=== PATIENT | female | born 1950 | race American Indian/Alaskan Native ===

== ENCOUNTER 2018-07-24 06:57 | Day surgery (SDC) | payer MEDICARE ==
[~2018-07-24 06:57] MED LIST: ANCEF/STERILE WATER 2 GM/20 ML IV NR
[2018-07-24] MEDS ORDERED: NACL BACTERIOSTATIC INFILTRATI ONE (07:43)
[2018-07-24] MEDS ORDERED: LACTATED RINGERS 1,000 ML ONE (07:43)
[2018-07-24] MEDS ORDERED: LACTATED RINGERS 1,000 ML IV SCH (08:00)
[2018-07-24] MEDS ORDERED: VERSED IV NR (08:22)
[2018-07-24] MEDS ORDERED: MARCAINE-EPI 0.25%-1:200,000 INFILTRATI ONE (08:24)
[2018-07-24] MEDS ORDERED: XYLOCAINE 1% 20 mL ONE (08:24)
[2018-07-24] MEDS ORDERED: MARCAINE 0.25% INFILTRATI ONE ×2 (08:24→09:20)
[2018-07-24] MEDS ORDERED: DIPRIVAN 10 MG/ML IV ONE ×2 (08:28→08:40)
[2018-07-24] MEDS ORDERED: SUBLIMAZE ONE (08:28)
[2018-07-24] MEDS ORDERED: XYLOCAINE MPF 2% ONE (08:30)
[2018-07-24] MEDS ORDERED: PROAIR IH ONE (08:40)
[2018-07-24] MEDS ORDERED: PERCOCET 5/325 PO PRN (08:40)
--- NOTE | 2018-07-24 08:40 | Anesthesia Consultation ---
Anesthesia Consult and Med Hx Date of service: 07/24/18 - Airway Anesthetic Teeth Evaluation: Good ROM Head & Neck: Adequate Mental/Hyoid Distance: Adequate Mallampati Class: Class III Intubation Access Assessment: Possibly Difficult - Pulmonary Exam CTA: Yes - Cardiac Exam Cardiac Exam: RRR - Pre-Operative Health Status ASA Pre-Surgery Classification: ASA2 Proposed Anesthetic Plan: MAC - Pulmonary Hx Smoking: Yes (current 0.5-1PPD x12 yrs) Hx Asthma: No Hx Respiratory Symptoms: No COPD: No Hx Sleep Apnea: No - Cardiovascular System Hx Hypertension: Yes (BP elevated on arrival. Will take morning dose of carvedilol.) Hx Heart Attack/AMI: No Hx Percutaneous Transluminal Coronary Angioplasty (PTCA): No - Central Nervous System Hx Seizures: No CVA: No Hx Psychiatric Problems: No - Gastrointestinal Hx Gastroesophageal Reflux Disease: No - Endocrine Hx Renal Disease: No Hx Liver Disease: No Hx Insulin Dependent Diabetes: No Hx Non-Insulin Dependent Diabetes: No Hx Thyroid Disease: No - Other Systems Hx Alcohol Use: Yes (OCC. WINE) Hx Cancer: No Hx Obesity: Yes - Additional Comments Anesthesia Medical History Comments: No hx anesthetic complications.
--- NOTE | 2018-07-24 08:40 | Anesthesia Day of Surgery ---
Anesthesia Day of Surgery - Day of Surgery Patient Examined: Yes Patient H&P Reviewed: Yes Patient is NPO: Yes Beta Blockers: Yes
[2018-07-24] MEDS ORDERED: XYLOCAINE 1%/ EPI 1:100,000 INFILTRATI ONE ×2 (09:20→09:22)
[2018-07-24] MEDS ORDERED: NACL 0.9% IR ONE (09:20)
[2018-07-24] MEDS ORDERED: DILAUDID ONE (10:58)
[2018-07-24] MEDS ORDERED: ZOFRAN ONE (11:01)
[2018-07-24] MEDS ORDERED: DECADRON ONE (11:01)
--- NOTE | 2018-07-24 12:20 | Operative Report ---
Operative Report Operative Report: Date of procedure: 07/24/2018 Pre-operative diagnosis: Right anterior thigh mass Post-operative diagnosis: Same Procedure name(s): Excision of right anterior thigh mass Surgeon: Sergey Vaughan MD Sausage Inspector: None Anesthesia: Gen. EBL: Minimal Complications: None noted Instrument Count: Correct Indications: This is a 68-year-old female with a history of an enlarging anterior thigh mass that is now causing pain. The patient noted that it was discovered approximately 14 years prior. The risks and benefits of the procedure was discussed in depth the patient opted for surgical intervention. She was subsequently brought to operating room. Findings: Large 13 x 6 x 8 cm calcified anterior thigh mass Procedure: The informed consent was reviewed. The patient was then placed supine upon the table. After adequate anesthesia was reached, verify the patient, who was then prepped and draped in usual sterile fashion. I infiltrated local anesthetic field block around the mass. Mass is noted to be hard. I made a skin incision initially using a 10 blade approximately 8 cm transversely across the thigh along the skin lines. Dissection was carried down through the subcutaneous tissues until the anterior fascial sheath was encountered. Using a 15 blade introducer sheath carefully and split the sheath both superiorly and inferiorly along the length of the mass. The quadriceps muscle was identified and split in a muscle-sparing manner. I dissected down until I encountered the mass. There was several layers of muscle fibers over the mass creating a sheath and I was forced to dissect through this, opening each layer individually the most anterior aspect of the mass was noted to be e xtremely calcified and it took careful dissection to free up the anterior aspect of the mass. Superiorly the mass extended up towards the inguinal ligament however no critical structures were identified attached to the mass. Using primarily blunt dissection I was able to free the mass from most of the attachments. There remained a small amount of fibrous sheath at the most posterior aspect and at this point time I incised the sheath to allow complete mobilization of the mass. This allowed me to exteriorize the mass and using electrocautery release it from the remainder of the fibrous sheath that surrounded it. At this time I handed the mass off from the table to be sent to pathology with the previously noted dimensions. I irrigated the wound and then approximated the anterior fascial sheath using a 3-0 Vicryl in a running fashion. The quadriceps muscle had also been approximated using interrupted 30 Vicryls. The subcutaneous tissues were also approximated using running 3-0 Vicr yl followed by a 4-0 Monocryl to close the skin. The wound was bandaged sterilely patient tolerated procedure well she was awakened and extubated transferred PACU in no apparent distress in the dictation
--- NOTE | 2018-07-24 12:29 | Short Stay Summary ---
Short Stay Documentation Date of service: 07/24/18 - History H&P: obtained from office - Allergies and Medications Current Medications: Allergies No Known Allergies Allergy (Unverified 06/16/15 15:24) Home Medications Medication Instructions Recorded Confirmed Last Taken Type Carvedilol 12.5 mg PO BID #60 06/17/15 07/24/18 07/24/18 08:20 Rx Losartan/Hydrochlorothiazide 1 each PO QDAY #30 tablet 06/17/15 07/24/18 07/23/18 09:00 Rx [Hyzaar 50-12.5 TAB] Potassium Chloride [K-Dur] 10 meq PO QDAY #30 tablet 06/17/15 07/24/18 06/23/18 Rx Alive Once Daily Women 50 Plus 1 tab PO DAILY 07/19/18 07/24/18 07/23/18 History B-Complex Tablet 0 mg PO DAILY 07/19/18 07/19/18 07/22/18 History Folic Acid 400 mg PO QDAY 07/19/18 07/19/18 07/22/18 History Active Medications Cefazolin Sodium (Ancef/Sterile Water 2 Gm/20 Ml) 2 gm IV PREOP NR Stop: 07/24/18 23:00 Lactated Ringer's (Lactated Ringers) 1,000 mls @ 100 mls/hr IV DIRECT QUIQUE Last Admin: 07/24/18 08:11 Dose: 100 mls/hr Documented by: Midazolam HCl (Versed) 2 mg IV PREOP NR Stop: 07/24/18 23:59 Last Admin: 07/24/18 08:33 Dose: 2 mg Documented by: Oxycodone/Acetaminophen (Percocet 5/325) 1 tab PO ONCE PRN PRN Reason: Pain, Moderate (4-6) Stop: 07/24/18 16:00 - Brief post op/procedure progress note Date of procedure: 07/24/18 Pre-op diagnosis: see operative note Pathology: list (anterior thigh mass) Specimen disposition: to lab Condition: stable - Disposition Condition at discharge: Stable Disposition: DC-01 TO HOME OR SELFCARE Short Stay Discharge Plan Diet: regular Wound: keep clean and dry Follow up with: KENYATTA WALKER MD [Primary Care Provider] - 7 Days EITAN GATICA MD [Staff Physician] - 7 Days Prescriptions: oxyCODONE /ACETAMINOPHEN [Percocet 5/325] 1 tab PO Q6HR PRN #30 tablet PRN Reason: Pain
--- NOTE | 2018-07-24 13:26 | Post Anesthesia Evaluation ---
- Post Anesthesia Evaluation Patient Participated: Yes Airway Patent: Yes Stable Respiratory Function: Yes Nausea/Vomiting: No Temp > 96.8F: Yes Pain Manageable: Yes Adequeate Hydration: Yes Anesthesia Complications: No
[2018-07-24 13:30] VITALS: BP 152/71
== END 2018-07-24 14:05 | disposition home or self-care (01) ==
LOC: OR 06:57
PROVIDERS: ATTEND Surgery
DX: R22.42 Localized swelling, mass and lump, left lower limb (principal); I10 Essential (primary) hypertension; F17.210 Nicotine dependence, cigarettes, uncomplicated; E66.9 Obesity, unspecified; Z68.33 Body mass index [BMI] 33.0-33.9, adult; Z72.89 Other problems related to lifestyle; Z79.899 Other long term (current) drug therapy
CPT/HCPCS: 27339; 36415; 84132; 88307; J0690; J1100; J1170; J2250; J2405; J2704; J3010; J7120; 88311

== ENCOUNTER 2018-11-16 11:58 | Outpatient (CLI) | payer MEDICARE ==
[2018-11-16 12:53] LABS: Blood Urea Nitrogen 11 mg/dL (7-17)
--- NOTE | 2018-11-16 15:00 | Cat Scan Report ---
PROCEDURE: CT scan of the neck without IV contrast followed by CT scan of the neck with IV contrast. TECHNIQUE: Spiral CT images of the neck was obtained without IV contrast followed by spiral CT imagi ng of the neck with IV contrast. HISTORY: LYMPHEDEMA COMPARISONS: None FINDINGS: Nonspecific Low-density nodules are scattered in the right and left lobes of the thyroid gland measur ing up to 1.5 cm in the right lobe of the thyroid gland. The larynx is unremarkable. Prevertebral sof t tissues appear normal. Parapharyngeal spaces are symmetric. The submandibular glands are slightly a symmetric to the left is slightly larger than the right otherwise unremarkable. The parotid glands sh ow no abnormalities. The epiglottis is unremarkable. Base of the tongue showed no abnormalities. Tons ils do not appear to be enlarged. Nonspecific subcentimeter lymph nodes are scattered in the right an d left side of the neck. These do not appear to be pathologically enlarged. There is moderate mucosal thickening in the left maxillary sinus. No air-fluid level is seen. Portion s of the ethmoid air cells appear to be surgically absent. A large portion of the nasal septum appear s to be absent. Paranasal sinuses otherwise appear to be clear. IMPRESSION: Nonspecific subcentimeter lymph nodes scattered in the neck. These do not appear to be pathologically enlarged. Nonspecific low-density nodules scattered in the thyroid gland. Consider thyroid ultrasound for furth er evaluation. Post surgical changes appear to be present in the nasal septum and ethmoid air cells as described. Moderate mucosal thickening seen in left maxillary sinus which is otherwise unremarkable.. This document is electronically signed by Lennox Garcia MD., Nov 16 2018 02:58:25 PM ET
--- NOTE | 2018-11-16 15:05 | Cat Scan Report ---
PROCEDURE: Unenhanced CT scan of the brain followed by contrast-enhanced CT scan of the brain. TECHNIQUE: Spiral imaging of the brain was obtained without the use of IV contrast followed by spira l CT imaging of the brain with IV contrast. HISTORY: LYMPHEDEMA COMPARISONS: None FINDINGS: Brain density appears normal IMPRESSION: FINDINGS: Brain: Brain density appears normal. No evidence of intracranial hemorrhage. No parenchymal hemorr kasi, mass lesions or mass effect are seen. No abnormal extra-axial fluid collects or masses are see n. No abnormal areas of enhancement are identified. Ventricles: Ventricles are normal size and are midline. Bone Windows: No evidence of skull fracture. Paranasal sinuses: Postsurgical changes are present. There appears to been partial resection of the n ru septum and ethmoid air cells on the left. Mucosal thickening seen in the left maxillary sinus. V isualized paranasal sinuses otherwise are clear. Mastoid air cells: Clear. IMPRESSION: Negative unenhanced and enhanced CT scan of the brain. Postsurgical changes appear to be visualized in the paranasal sinuses and nasal septum as described. Mucosal thickening partially visualized in the left maxillary sinus. Visualized portions of the paran ru sinuses otherwise are clear. . This document is electronically signed by Lennox Garcia MD., Nov 16 2018 03:03:26 PM ET
== END 2018-11-16 11:59 | disposition home or self-care (01) ==
LOC: CT 11:58
PROVIDERS: ATTEND Internal Medicine
DX: J32.0 Chronic maxillary sinusitis (principal); E04.2 Nontoxic multinodular goiter; I10 Essential (primary) hypertension; E66.9 Obesity, unspecified; R93.0 Abnormal findings on diagnostic imaging of skull and head, not elsewhere classified
CPT/HCPCS: 36415; 70470; 70492; 82565; 84520; Q9967

== ENCOUNTER 2021-04-20 10:09 | Emergency (ER) | payer MEDICARE ==
--- NOTE | 2021-04-20 10:57 | Emergency Department Report ---
ED ENT HPI - General Chief complaint: Dental/Oral Stated complaint: RT GLAND SWOLLEN Time Seen by Provider: 04/20/21 10:24 Source: patient Mode of arrival: Ambulatory Limitations: No Limitations - History of Present Illness Initial comments: Is a 8-year-old female who presents the emergency department chief complaint of a firm mass under the corner of her mandible on the right side has been present over the past week. She initially went to urgent care and was placed on clindamycin and given ibuprofen for her pain. She then followed up with her ENT Dr. Fischer. She was told to eat sour candies for the parotitis. She presents here today saying that the ibuprofen is longer helping with the pain and she is not seeing any improvement. She states she has had this in the past and usually gets improvement by now with antibiotics. She states the swelling is much more increased than normal and is more painful than normal. She denies any associate d fever, chills, night sweats, headache, dizziness, blurry vision, nausea vomiting, diarrhea, chest pain or shortness of breath, weakness or any other associated symptoms. - Related Data Home Medications Medication Instructions Recorded Confirmed Last Taken Alive Once Daily Women 50 Plus 1 tab PO DAILY 07/19/18 07/24/18 07/23/18 B-Complex Tablet 0 mg PO DAILY 07/19/18 07/19/18 07/22/18 Folic Acid 400 mg PO QDAY 07/19/18 07/19/18 07/22/18 Previous Rx's Medication Instructions Recorded Last Taken Type Carvedilol 12.5 mg PO BID #60 06/17/15 07/24/18 08:20 Rx Losartan/Hydrochlorothiazide 1 each PO QDAY #30 tablet 06/17/15 07/23/18 09:00 Rx [Hyzaar 50-12.5 TAB] Potassium Chloride [K-Dur] 10 meq PO QDAY #30 tablet 06/17/15 06/23/18 Rx oxyCODONE /ACETAMINOPHEN [Percocet 1 tab PO Q6HR PRN #30 tablet 07/24/18 Unknown Rx 5/325] Acetaminophen with Codeine 1 tab PO Q6HR #12 tab 04/20/21 Unknown Rx [Acetaminophen-Codeine #4 TAB] Clindamycin [Clindamycin CAP] 300 mg PO Q6H #15 capsule 04/20/21 Unknown Rx methylPREDNISolone [Medrol 4MG 4 mg PO ONCE #1 tab.ds.pk 04/20/21 Unknown Rx DOSEPAK (21 tabs)] Allergies Allergy/AdvReac Type Severity Reaction Status Date / Time No Known Allergies Allergy Verified 04/20/21 10:18 ED Dental HPI - General Chief complaint: Dental/Oral Stated complaint: RT GLAND SWOLLEN Time Seen by Provider: 04/20/21 10:24 Source: patient Mode of arrival: Ambulatory Limitations: No Limitations - Related Data Home Medications Medication Instructions Recorded Confirmed Last Taken Alive Once Daily Women 50 Plus 1 tab PO DAILY 07/19/18 07/24/18 07/23/18 B-Complex Tablet 0 mg PO DAILY 07/19/18 07/19/18 07/22/18 Folic Acid 400 mg PO QDAY 07/19/18 07/19/18 07/22/18 Previous Rx's Medication Instructions Recorded Last Taken Type Carvedilol 12.5 mg PO BID #60 06/17/15 07/24/18 08:20 Rx Losartan/Hydrochlorothiazide 1 each PO QDAY #30 tablet 06/17/15 07/23/18 09:00 Rx [Hyzaar 50-12.5 TAB] Potassium Chloride [K-Dur] 10 meq PO QDAY #30 tablet 06/17/15 06/23/18 Rx oxyCODONE /ACETAMINOPHEN [Percocet 1 tab PO Q6HR PRN #30 tablet 07/24/18 Unknown Rx 5/325] Acetaminophen with Codeine 1 tab PO Q6HR #12 tab 04/20/21 Unknown Rx [Acetaminophen-Codeine #4 TAB] Clindamycin [Clindamycin CAP] 300 mg PO Q6H #15 capsule 04/20/21 Unknown Rx methylPREDNISolone [Medrol 4MG 4 mg PO ONCE #1 tab.ds.pk 04/20/21 Unknown Rx DOSEPAK (21 tabs)] Allergies Allergy/AdvReac Type Severity Reaction Status Date / Time No Known Allergies Allergy Verified 04/20/21 10:18 ED Review of Systems ROS: Stated complaint: RT GLAND SWOLLEN Other details as noted in HPI Constitutional: denies: chills, fever Eyes: denies: eye pain, eye discharge, vision change ENT: as per HPI, other. denies: ear pain, throat pain Respiratory: denies: cough, shortness of breath, wheezing Cardiovascular: denies: chest pain, palpitations Endocrine: no symptoms reported Gastrointestinal: denies: abdominal pain, nausea, diarrhea Genitourinary: denies: urgency, dysuria, discharge Musculoskeletal: denies: back pain, joint swelling, arthralgia Skin: denies: rash, lesions Neurological: denies: headache, weakness, paresthesias Psychiatric: denies: anxiety, depression Hematological/Lymphatic: denies: easy bleeding, easy bruising ED Past Medical Hx - Past Medical History Hx Hypertension: Yes (BP elevated on arrival. 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 - Surgical History Additional Surgical History: SINUS SURGERY - Social History Smoking Status: Current Every Day Smoker - Medications Home Medications: Home Medications Medication Instructions Recorded Confirmed Last Taken Type Carvedilol 12.5 mg PO BID #60 06/17/15 07/24/18 07/24/18 08:20 Rx Losartan/Hydrochlorothiazide 1 each PO QDAY #30 tablet 06/17/15 07/24/18 07/23/18 09:00 Rx [Hyzaar 50-12.5 TAB] Potassium Chloride [K-Dur] 10 meq PO QDAY #30 tablet 06/17/15 07/24/18 06/23/18 Rx Alive Once Daily Women 50 Plus 1 tab PO DAILY 07/19/18 07/24/18 07/23/18 History B-Complex Tablet 0 mg PO DAILY 07/19/18 07/19/18 07/22/18 History Folic Acid 400 mg PO QDAY 07/19/18 07/19/18 07/22/18 History oxyCODONE /ACETAMINOPHEN [Percocet 1 tab PO Q6HR PRN #30 tablet 07/24/18 Unknown Rx 5/325] Acetaminophen with Codeine 1 tab PO Q6HR #12 tab 04/20/21 Unknown Rx [Acetaminophen-Codeine #4 TAB] Clindamycin [Clindamycin CAP] 300 mg PO Q6H #15 capsule 04/20/21 Unknown Rx methylPREDNISolone [Medrol 4MG 4 mg PO ONCE #1 tab.ds.pk 04/20/21 Unknown Rx DOSEPAK (21 tabs)] ED Physical Exam - General Limitations: No Limitations General appearance: alert, in no apparent distress - Head Head exam: Present: atraumatic, normocephalic - Eye Eye exam: Present: normal appearance, PERRL, EOMI Pupils: Present: normal accommodation - ENT ENT exam: Present: mucous membranes moist, other (there is soft tissue edema with tenderness just below the mandible on the right. no submandibular edema. no tongue elevation. no dysphonia or drooling. no peritonsilar edema, retropaharyngeal edema ) - Neck Neck exam: Present: normal inspection, full ROM. Absent: tenderness, meningismus - Respiratory Respiratory exam: Present: normal lung sounds bilaterally. Absent: respiratory distress, wheezes, rales, rhonchi, stridor - Cardiovascular Cardiovascular Exam: Present: regular rate, normal rhythm, normal heart sounds. Absent: systolic murmur, diastolic murmur, rubs, gallop - GI/Abdominal GI/Abdominal exam: Present: soft, normal bowel sounds. Absent: distended, tenderness, guarding, rebound, rigid - Extremities Exam Extremities exam: Present: normal inspection, full ROM, normal capillary refill. Absent: tenderness, calf tenderness - Back Exam Back exam: Present: normal inspection, full ROM. Absent: tenderness, CVA tenderness (R), CVA tenderness (L) - Neurological Exam Neurological exam: Present: alert, oriented X3, normal gait - Psychiatric Psychiatric exam: Present: normal affect, normal mood - Skin Skin exam: Present: warm, dry, intact, normal color. Absent: rash ED Course Vital Signs 04/20/21 04/20/21 04/20/21 10:16 11:22 11:24 Temperature 98.0 F 98.4 F Pulse Rate 68 65 Respiratory 18 12 12 Rate Blood Pressure 166/65 Blood Pressure 160/67 [Left] O2 Sat by Pulse 100 100 100 Oximetry ED Medical Decision Making - Lab Data Result diagrams: 04/20/21 10:52 04/20/21 10:52 Lab Results 04/20/21 04/20/21 Range/Units 10:52 10:52 WBC 7.5 (4.5-11.0) K/mm3 RBC 4.84 (3.65-5.03) M/mm3 Hgb 14.4 H (10.1-14.3) gm/dl Hct 42.6 (30.3-42.9) % MCV 88 (79-97) fl MCH 30 (28-32) pg MCHC 34 (30-34) % RDW 13.6 (13.2-15.2) % Plt Count 172 (140-440) K/mm3 Lymph % (Auto) 34.4 (13.4-35.0) % [place] % (Auto) 10.3 H (0.0-7.3) % Eos % (Auto) 2.5 (0.0-4.3) % Baso % (Auto) 0.7 (0.0-1.8) % Lymph # (Auto) 2.6 (1.2-5.4) K/mm3 [place] # (Auto) 0.8 (0.0-0.8) K/mm3 Eos # (Auto) 0.2 (0.0-0.4) K/mm3 Baso # (Auto) 0.1 (0.0-0.1) K/mm3 Seg Neutrophils % 52.1 (40.0-70.0) % Seg Neutrophils # 3.9 (1.8-7.7) K/mm3 Sodium 144 (137-145) mmol/L Potassium 3.7 (3.6-5.0) mmol/L Chloride 108.5 H (98-107) mmol/L Carbon Dioxide 20 L (22-30) mmol/L Anion Gap 19 mmol/L BUN 8 (7-17) mg/dL Creatinine 0.7 (0.6-1.2) mg/dL Estimated GFR > 60 ml/min BUN/Creatinine Ratio 11 % Glucose 109 H (65-100) mg/dL Calcium 9.0 (8.4-10.2) mg/dL Total Bilirubin 0.60 (0.1-1.2) mg/dL AST 13 (5-40) units/L ALT 14 (7-56) units/L Alkaline Phosphatase 69 (35-129) units/L Total Protein 7.0 (6.3-8.2) g/dL Albumin 3.6 L (3.9-5) g/dL Albumin/Globulin Ratio 1.1 % - Radiology Data Radiology results: report reviewed, image reviewed CT FACE HISTORY: Swelling below the mandible on the right. COMPARISON: 11/16/2018. TECHNIQUE: Axial images of the face were obtained after the intravenous menstruation of 100 mL of Omnipaque 300 contrast agent. Coronal and sagittal reformations were processed and reviewed. Au tomated exposure control was utilized. FINDINGS The right submandibular gland demonstrates slightly heterogenous appearance and lobulated contours which is asymmetric compared to the left. A discrete mass within the right submental gland is not appreciated. Multiple enlarged lymph nodes (measuring up to 1.5 x 1.2 cm) are noted adjacent to the right submandibular gland. Additionally, enlarged right cervical lymph nodes, particularly at level II, are also noted. The airway appears fairly symmetric and there is no evidence of eccentric narrowing or underlying mass within the limitations of the CT. No focal fluid collection is seen to suggest the presence of abscess. The thyroid is enlarged with a few poorly defined small nodules some of which appear calcified. The appearance is similar to 11/16/2018 CT. Vascular structures are unremarkable. Partially visualized upper chest shows unremarkable appearance of the lungs. No evidence of acute osseous injury or aggressive osseous destructive lesion. Postsurgical changes in the region of paranasal sinuses with apparent resection of the nasal septum and ethmoid air cells. This is similar to 2019 CT. IMPRESSION: The right submandibular gland demonstrates slightly heterogenous appearance with lobulated contours. This is asymmetric compared to the left submandibular gland. The appearance is of uncertain etiology or significance, possibly representing some underlying infectious or inflammatory process. Additionally, there are enlarged adjacent lymph nodes which likely accounts for the reported swelling in this region. Recommend clinical correlation with any signs and symptoms of infection. Follow-up ultrasound is recommended to ensure complete resolution and to assess for any underlying submandibular mass if the symptoms persist. Stable enlarged nodular appearance of the thyroid gland or this is unchanged from 2019 CT. Signer Name: Warner Wilhelm MD Signed: 04/20/2021 1:53 PM Workstation Name: [id number] Transcribed By: BOBBY Dictated By: WARNER WILHELM MD Electronically Authenticated By: WARNER WILHELM MD Signed Date/Time: 04/20/21 3021 - Medical Decision Making Patient CT showed inflammation or infection of the submandibular gland with no drainable fluid collection or other acute process. Patient was reevaluated and eating a peanut butter and jelly sandwich in the room. I will continue her clindamycin for 5 more days to be a 10-day course as well as give her a Medrol dose pack and some pain medication and recommend she follow-up with her ENT doctor again. She was instructed to return to the emergency department medially she develops any change or worsening symptoms such as swelling under her jaw, tongue elevation, dysphonia or drooling. She verbalized understand these instructions and all of her questions were answered. - Differential Diagnosis Parotitis, cellulitis, dental abscess Critical care attestation.: If time is entered above; I have spent that time in minutes in the direct care of this critically ill patient, excluding procedure time. ED Disposition Clinical Impression: Submandibular gland infection Disposition: HOME / SELF CARE / HOMELESS Is pt being admited?: No Condition: Stable Instructions: Salivary Gland Infection Prescriptions: Acetaminophen with Codeine [Acetaminophen-Codeine #4 TAB] 1 tab PO Q6HR #12 tab Clindamycin [Clindamycin CAP] 300 mg PO Q6H #15 capsule methylPREDNISolone [Medrol 4MG DOSEPAK (21 tabs)] 4 mg PO ONCE #1 tab.ds.pk Referrals: KARYN MURCIA MD [Referring] - 3-5 Days
[2021-04-20 11:17] LABS: Basophils # (Auto) 0.1 K/mm3 (0.0-0.1); Basophils % (Auto) 0.7 % (0.0-1.8); Eosinophils # (Auto) 0.2 K/mm3 (0.0-0.4); Eosinophils % (Auto) 2.5 % (0.0-4.3); Hematocrit 42.6 % (30.3-42.9); Hemoglobin 14.4 gm/dl (10.1-14.3); Lymphocytes # (Auto) 2.6 K/mm3 (1.2-5.4); Lymphocytes % (Auto) 34.4 % (13.4-35.0); Mean Corpuscular HGB Conc 34 % (30-34); Mean Corpuscular Volume 88 fl (79-97); Monocytes # (Auto) 0.8 K/mm3 (0.0-0.8); Monocytes % (Auto) 10.3 % (0.0-7.3); Platelet Count 172 K/mm3 (140-440); Red Blood Count 4.84 M/mm3 (3.65-5.03); Red Cell Distribution Width 13.6 % (13.2-15.2)
[2021-04-20 11:23] VITALS: BP 160/67
[2021-04-20 12:18] LABS: Alanine Aminotransferase 14 units/L (7-56); Albumin 3.6 g/dL (3.9-5); Blood Urea Nitrogen 8 mg/dL (7-17); Hemolysis Index 1
[2021-04-20 12:23] LABS: BUN/Creatinine Ratio 11
--- NOTE | 2021-04-20 13:57 | Cat Scan Report ---
CT FACE HISTORY: Swelling below the mandible on the right. COMPARISON: 11/16/2018. TECHNIQUE: Axial images of the face were obtained after the intravenous menstruation of 100 mL of Omn ipaque 300 contrast agent. Coronal and sagittal reformations were processed and reviewed. Automated [employer] xposure control was utilized. FINDINGS The right submandibular gland demonstrates slightly heterogenous appearance and lobulated contours wh ich is asymmetric compared to the left. A discrete mass within the right submental gland is not appre ciated. Multiple enlarged lymph nodes (measuring up to 1.5 x 1.2 cm) are noted adjacent to the right submandi bular gland. Additionally, enlarged right cervical lymph nodes, particularly at level II, are also no [place]. The airway appears fairly symmetric and there is no evidence of eccentric narrowing or underlying mas s within the limitations of the CT. No focal fluid collection is seen to suggest the presence of absc ess. The thyroid is enlarged with a few poorly defined small nodules some of which appear calcified. The a ppearance is similar to 11/16/2018 CT. Vascular structures are unremarkable. Partially visualized upper chest shows unremarkable appearance of the lungs. No evidence of acute osseous injury or aggressive osseous destructive lesion. Postsurgical changes in the region of paranasal sinuses with apparent resection of the nasal septum and ethmoid air cells. T his is similar to 2019 CT. IMPRESSION: The right submandibular gland demonstrates slightly heterogenous appearance with lobulated contours. This is asymmetric compared to the left submandibular gland. The appearance is of uncertain etiology or significance, possibly representing some underlying infectious or inflammatory process. Additional ly, there are enlarged adjacent lymph nodes which likely accounts for the reported swelling in this r egion. Recommend clinical correlation with any signs and symptoms of infection. Follow-up ultrasound is recommended to ensure complete resolution and to assess for any underlying submandibular mass if t he symptoms persist. Stable enlarged nodular appearance of the thyroid gland or this is unchanged from 2019 CT. Signer Name: Warner Araujo MD Signed: 04/20/2021 1:53 PM Workstation Name: [id number]
== END 2021-04-20 15:19 | disposition home or self-care (01) ==
LOC: ED 10:09
DX: M27.2 Inflammatory conditions of jaws (principal); K11.3 Abscess of salivary gland; I10 Essential (primary) hypertension; Z98.890 Other specified postprocedural states; F17.200 Nicotine dependence, unspecified, uncomplicated
CPT/HCPCS: 36415; 70487; 80053; 85025; 99284; Q9967